=== PATIENT | male | born 2000 | race Two or more races ===

== ENCOUNTER 2021-09-30 12:55 | Emergency (ER) | payer BC, OTHER ==
[~2021-09-30] VITALS: Ht 177.8 cm; Wt 88.5 kg
[2021-09-30] MEDS ORDERED: ACETAMINOPHEN 325 MG TAB PO ONE (13:15)
[2021-09-30 13:22] VITALS: BP 138/79
[2021-09-30] MEDS ORDERED: cefTRIAXone SOD 1,000 MG VL IM ONE (14:00)
[2021-09-30] MEDS ORDERED: methylPREDNISolone SOD SUCC 125 MG/2 ML VL IM ONE (14:00)
[2021-09-30] MEDS ORDERED: IBUPROFEN 600 MG TAB PO ONE (14:00)
[2021-09-30] MEDS ORDERED: IBUP800T27 PO (14:26)
[2021-09-30] MEDS ORDERED: CEPH-509 PO (14:26)
== END 2021-09-30 15:15 | disposition home or self-care (01) ==
LOC: ER 12:55
DX: H66.93 Otitis media, unspecified, bilateral (principal); J03.90 Acute tonsillitis, unspecified; Z88.0 Allergy status to penicillin
CPT/HCPCS: 96372; 99284; J0696; J2930

== ENCOUNTER 2021-12-13 13:26 | Emergency (ER) | payer BC ==
[~2021-12-13] VITALS: Ht 177.8 cm; Wt 93.0 kg
[2021-12-13 13:26] VITALS: BP 126/82
[~2021-12-13 13:26] MED LIST: CEPH-509 PO; IBUP800T27 PO
[2021-12-13] MEDS ORDERED: AZIT500T66 PO (14:46)
[2021-12-13] MEDS ORDERED: IBUP800T27 PO (14:46)
== END 2021-12-13 15:13 | disposition home or self-care (01) ==
LOC: ER 13:26
DX: J03.90 Acute tonsillitis, unspecified (principal); Z90.89 Acquired absence of other organs; Z88.0 Allergy status to penicillin

== ENCOUNTER 2022-02-11 12:30 | Emergency (ER) | payer BC ==
[~2022-02-11] VITALS: Ht 177.8 cm; Wt 101.4 kg
[~2022-02-11 12:30] MED LIST changes: +AZIT500T66 PO
[2022-02-11] MEDS ORDERED: DOXY-332 PO (15:27)
[2022-02-11] MEDS ORDERED: IBUP800T27 PO (15:27)
[2022-02-11] MEDS ORDERED: ACETAMINOPHEN/CODEINE#3 (300/30mg) TAB PO ONE (15:30)
[2022-02-11] MEDS ORDERED: ONDANSETRON ODT 4 MG TAB PO ONE (15:30)
[2022-02-11 19:02] VITALS: BP 129/77
== END 2022-02-11 19:06 | disposition home or self-care (01) ==
LOC: ER 12:30
DX: J02.9 Acute pharyngitis, unspecified (principal); Z20.822 Contact with and (suspected) exposure to COVID-19
CPT/HCPCS: 36415; 87426; 87804; 99283; Q0162

== ENCOUNTER 2023-02-03 11:43 | Emergency (ER) | payer BC ==
[~2023-02-03] VITALS: Ht 177.8 cm; Wt 101.8 kg
[~2023-02-03 11:43] MED LIST changes: +DOXY-448 PO; +IBUP-1456 PO; -IBUP800T27 PO
[2023-02-03 13:47] VITALS: BP 132/78
[2023-02-03] MEDS ORDERED: ACETAMINOPHEN 500 MG TAB PO ONE (14:15)
[2023-02-03 14:54] LABS: Basophils # (auto) 0 10 ^3/uL (0-0.2); Basophils % (auto) 0.2 % (0.0-2.0); Eosinophils # (auto) 0 10 ^3/uL (0-0.8); Eosinophils % (auto) 0.2 % (0.0-7.0); Hematocrit 44.8 % (41.0-53.0); Hemoglobin 15.8 g/dL (13.5-17.5); Lymphocytes # (auto) 1.5 10 ^3/uL (0.4-5.4); Lymphocytes % (auto) 13.2 % (10.0-50.0); Mean Corpuscular Hemoglobin 30.6 pg (28.0-32.0); Mean Corpuscular Hgb Conc. 35.1 g/dL (32.0-36.0); Mean Corpuscular Volume 87.1 fL (80.0-100.0); Monocytes % (auto) 9.2 % (0.0-12.0); Neutrophils # (auto) 8.7 10 ^3/uL (1.6-8.6); Neutrophils % (auto) 77.2 % (37.0-80.0); Nucleated Red Blood Cells % 0.7 %; Red Blood Cells 5.15 10^6/uL (4.5-5.90); Red Cell Distribution Width 12.3 % (11.8-14.3); White Blood Cell 11.2 10^3/uL (4.4-10.8)
[2023-02-03] MEDS ORDERED: AUG875T PO (15:16)
== END 2023-02-03 15:25 | disposition home or self-care (01) ==
LOC: ER 11:43
DX: T14.8XXA Other injury of unspecified body region, initial encounter (principal); M54.59 Other low back pain; R10.9 Unspecified abdominal pain; Z88.0 Allergy status to penicillin; Z79.899 Other long term (current) drug therapy; Z90.49 Acquired absence of other specified parts of digestive tract; W54.0XXA Bitten by dog, initial encounter; Y93.89 Activity, other specified; Y92.89 Other specified places as the place of occurrence of the external cause; Y99.8 Other external cause status
CPT/HCPCS: 36415; 74018; 85025